=== PATIENT | male | born 1995 | race Hispanic/Latino ===

== ENCOUNTER 2022-09-16 13:24 | Emergency (ER) | payer OTHER ==
[~2022-09-16] VITALS: Ht 182.9 cm; Wt 81.6 kg
[2022-09-16 13:35] VITALS: BP 137/80
[2022-09-16] MEDS ORDERED: FLUORESCEIN SODIUM 1 STRIP STRIP OP SCH (14:30)
[2022-09-16] MEDS ORDERED: TETRACAINE HCL 0.5% 4 ML OPHTH SOLN OP SCH (14:30)
[2022-09-16] MEDS ORDERED: TETRACAINE HCL 0.5% 15 ML OPHTH SOLN OP SCH (14:30)
[2022-09-16] MEDS ORDERED: NA BORATE/BORIC AC/H2O/NACL 120 ML OPHTH IRRIG SOLN OP SCH (14:30)
[2022-09-16] MEDS ORDERED: POLYOS OD (14:58)
== END 2022-09-16 15:10 | disposition home or self-care (01) ==
LOC: EDH 13:24
DX: T15.82XA Foreign body in other and multiple parts of external eye, left eye, initial encounter (principal); Z79.899 Other long term (current) drug therapy; X58.XXXA Exposure to other specified factors, initial encounter; Y93.89 Activity, other specified; Y92.89 Other specified places as the place of occurrence of the external cause; Y99.8 Other external cause status